=== PATIENT | male | born 1970 | race Caucasian/White ===

== ENCOUNTER 2022-02-11 21:20 | Emergency (ER) | payer SELFPAY ==
--- NOTE | 2022-02-11 22:00 | NUR ---
PATIENT AMBULATED FROM [facility] OUT THE ER [facility], WITHOUT BEING TRIAGED.
== END 2022-02-11 22:23 | disposition left against medical advice (07) ==
LOC: ER 21:22
DX: Z53.21 Procedure and treatment not carried out due to patient leaving prior to being seen by health care provider (principal)

== ENCOUNTER 2022-02-12 14:20 | Emergency (ER) | payer OTHER ==
[~2022-02-12] VITALS: Ht 180.3 cm; Wt 95.3 kg
[2022-02-12 14:36] VITALS: BP 122/89
--- NOTE | 2022-02-12 15:12 | NUR ---
SECURITY AT BEDSIDE FOR WANDING
--- NOTE | 2022-02-12 15:29 | NUR ---
URINE COLLECTED AND COVID SWAB DONE AND SENT TO LAB
[2022-02-12 15:30] LABS: BASOPHILS # (AUTO) 0.1 K/uL (0.0-0.2); BASOPHILS % (AUTO) 2.4 % (0.0-2.0); EOSINOPHILS % (AUTO) 2.6 % (0.0-6.0); HEMATOCRIT 43 % (39-51); HEMOGLOBIN 14.3 g/dL (13.5-17.5); LYMPHOCYTES % (AUTO) 38.1 % (20.0-44.0); MEAN CORPUSCULAR HGB CONC 34 g/dl (31.0-36.0); MEAN CORPUSCULAR VOLUME 94 fL (80-96); MONOCYTES # (AUTO) 0.6 K/uL (0.1-1.30); MONOCYTES % (AUTO) 10.4 % (2.0-12.0); NEUTROPHILS # (AUTO) 2.5 K/uL (1.8-8.9); NEUTROPHILS % (AUTO) 46.5 % (43.0-81.0); PLATELET COUNT (AUTO) 327 K/uL (150-450); RED BLOOD CELL COUNT(AUTO) 4.51 MIL/uL (4.5-6.0); WHITE BLOOD COUNT (AUTO) 5.3 K/uL (4.3-11.0)
[2022-02-12 15:39] LABS: BILIRUBIN,URINE NEGATIVE (NEGATIVE); COLOR,URINE YELLOW (YELLOW); LEUKOCYTE ESTERASE ,URINE NEGATIVE (NEGATIVE); NITRITE, URINE NEGATIVE (NEGATIVE); PH,URINE 6.5 (5.0-8.0); PROTEIN,URINE NEGATIVE (NEGATIVE); UGLUCOSE NEGATIVE (NEGATIVE); UROBILINOGEN,URINE 0.2 EU/dL (0.2)
[2022-02-12 15:55] LABS: ALBUMIN 3.6 g/dL (3.4-5.0); BILIRUBIN,DIRECT 0.1 mg/dL (0.0-0.2); BILIRUBIN,TOTAL 0.3 mg/dL (0.2-1.0); CALCIUM, SERUM 8.7 mg/dL (8.5-10.1); CREATININE 0.8 mg/dL (0.6-1.3); POTASSIUM 3.8 mmol/L (3.5-5.1); TOTAL PROTEIN, SERUM 7.4 g/dL (6.4-8.2)
--- NOTE | 2022-02-13 03:48 | NUR ---
PATIENT STATED HE IS NO LONGER SI, AND WOULD LIKE TO END TREATMENT AT THIS POINT ER MD MADE AWARE
--- NOTE | 2022-02-13 04:16 | NUR ---
Patient discharged to home in stable condition. Written and verbal after care instructions given. Patient verbalizes understanding of instruction.
== END 2022-02-13 04:17 | disposition home or self-care (01) ==
LOC: ER 14:24
DX: R45.851 Suicidal ideations (principal); F32.A Depression, unspecified; F10.10 Alcohol abuse, uncomplicated
CPT/HCPCS: 99285; 85025; 80048; 80076; 81003; 36415; 87426; 80143; 80320; 80307; C9803; G0480

== ENCOUNTER 2022-03-10 09:46 | Emergency (ER) | payer OTHER ==
[~2022-03-10] VITALS: Ht 175.3 cm; Wt 93.0 kg
--- NOTE | 2022-03-10 10:45 | NUR ---
Ambulatory Steady - BRP. Aware of plan care
[2022-03-10 10:47] LABS: BASOPHILS % (AUTO) 0.8 % (0.0-2.0); HEMATOCRIT 45 % (39-51); HEMOGLOBIN 14.9 g/dL (13.5-17.5); LYMPHOCYTES # (AUTO) 2.3 K/uL (0.8-4.8); LYMPHOCYTES % (AUTO) 40.9 % (20.0-44.0); MEAN CORPUSCULAR HGB CONC 33 g/dl (31.0-36.0); MEAN CORPUSCULAR VOLUME 95 fL (80-96); MONOCYTES # (AUTO) 0.3 K/uL (0.1-1.30); NEUTROPHILS # (AUTO) 2.9 K/uL (1.8-8.9); NEUTROPHILS % (AUTO) 51.3 % (43.0-81.0); PLATELET COUNT (AUTO) 184 K/uL (150-450); RED BLOOD CELL COUNT(AUTO) 4.74 MIL/uL (4.5-6.0); WHITE BLOOD COUNT (AUTO) 5.7 K/uL (4.3-11.0)
--- NOTE | 2022-03-10 11:02 | NUR ---
URINE COLLECTED AND SENT TO LAB
[2022-03-10 11:03] LABS: CALCIUM, SERUM 7.9 mg/dL (8.5-10.1); CREATININE 0.8 mg/dL (0.6-1.3); POTASSIUM 3.6 mmol/L (3.5-5.1)
--- NOTE | 2022-03-10 11:03 | NUR ---
TAKEN TO CT VIA [facility]
[2022-03-10 11:13] LABS: BILIRUBIN,URINE NEGATIVE (NEGATIVE); COLOR,URINE YELLOW (YELLOW); LEUKOCYTE ESTERASE ,URINE NEGATIVE (NEGATIVE); NITRITE, URINE NEGATIVE (NEGATIVE); PROTEIN,URINE NEGATIVE (NEGATIVE); UGLUCOSE NEGATIVE (NEGATIVE); UROBILINOGEN,URINE 0.2 EU/dL (0.2)
[2022-03-10 11:19] LABS: ALBUMIN 3.1 g/dL (3.4-5.0); BILIRUBIN,DIRECT 0.1 mg/dL (0.0-0.2); BILIRUBIN,TOTAL 0.5 mg/dL (0.2-1.0); TOTAL PROTEIN, SERUM 6.8 g/dL (6.4-8.2)
[2022-03-10 12:00] VITALS: BP 118/75
--- NOTE | 2022-03-10 12:30 | NUR ---
Lunch provided - Ate 100%
--- NOTE | 2022-03-10 14:00 | NUR ---
BRP- Gait steady. 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
--- NOTE | 2022-03-10 14:38 | NUR ---
Pt left prior to after care instructions
== END 2022-03-10 14:42 | disposition home or self-care (01) ==
LOC: ER 09:51
DX: F10.129 Alcohol abuse with intoxication, unspecified (principal); M54.50 Low back pain, unspecified; R41.82 Altered mental status, unspecified; F32.A Depression, unspecified; Z88.0 Allergy status to penicillin; Z60.2 Problems related to living alone; Y90.8 Blood alcohol level of 240 mg/100 ml or more
CPT/HCPCS: 36415; 70450-TC; 80048-TC; 80076-TC; 85025-TC; 85730-TC; G0480